=== PATIENT | female | born 1940 | race Caucasian/White ===

== ENCOUNTER 2017-09-06 19:01 | Inpatient (IN) | payer MEDICARE, OTHER ==
[2017-09-06 19:40] LABS: ABNORMAL IP MESSAGE 1; HEMATOCRIT 40.4 % (37.0-47.0); HEMOGLOBIN 13.3 g/dl (12.0-16.0); MEAN CORPUSCULAR HEMOGLOBIN 29.4 pg (29.0-33.0); MEAN CORPUSCULAR HGB CONC 32.9 g/dl (32.0-37.0); MEAN CORPUSCULAR VOLUME 89.4 fl (82.0-101.0); MEAN PLATELET VOLUME 10.1 fl (7.4-10.4); PLATELET COUNT 268 10^3/UL (140-415); RED BLOOD COUNT 4.52 10^6/ul (4.20-5.40); RED CELL DISTRIBUTION WIDTH 14.4 % (11.5-14.5)
[2017-09-06 19:40] LABS: WHITE BLOOD COUNT 4.2 10^3/ul (4.8-10.8)
[2017-09-06] MEDS: SODIUM CHLORIDE 0.9% 1L BAG IV* (19:59)
[2017-09-06 20:00] LABS: ANION GAP 16 (8-16)
[2017-09-06 20:01] LABS: ALANINE AMINOTRANSFERASE 58 IU/L (13-69); ALBUMIN 3.8 g/dl (3.3-4.9); ALBUMIN/GLOBULIN RATIO 1.02; ALKALINE PHOSPHATASE 173 IU/L (42-121); ASPARTATE AMINO TRANSFERASE 92 IU/L (15-46); BILIRUBIN,INDIRECT 0.4 mg/dl (0-1.1); BILIRUBIN,TOTAL 0.4 mg/dl (0.2-1.3); BLOOD UREA NITROGEN 12 mg/dl (7-20); CALCIUM 9.1 mg/dl (8.4-10.2); CARBON DIOXIDE 25 mmol/L (21-31); CHLORIDE 103 mmol/L (97-110); CREATININE 0.64 mg/dl (0.44-1.00); GLUCOSE 184 mg/dl (70-220); POTASSIUM 3.5 mmol/L (3.5-5.1); SODIUM 140 mmol/L (135-144); TOTAL PROTEIN 7.5 g/dl (6.1-8.1)
[2017-09-06 20:04] LABS: ADD MAN DIFF? YES; POSITIVE DIFF @See below; PROTIME 13.3 Sec (11.9-14.9)
[2017-09-06 20:05] LABS: PARTIAL THROMBOPLASTIN TIME 25.2 Sec (25.0-35.0)
[2017-09-06 20:05] LABS: LACTIC ACID 7.2 mmol/L (0.5-2.0)
[2017-09-06 20:17] LABS: TROPONIN-I < 0.010 ng/ml (0.000-0.120)
[2017-09-06 20:41] LABS: BAND NEUTROPHILS #M 1.7 10^3/ul (0.0-0.6); BAND NEUTROPHILS % (M) 41 % (0-4); EOSINOPHILS % (M) 2 % (0-7); ERYTHROBLAST% (NRBC) (M) 1 % (0-0); LYMPHOCYTES #M 0.3 10^3/ul (0.8-2.9); LYMPHOCYTES % (M) 8 % (15-51); PLATELET ESTIMATE NORMAL; POLYCHROMASIA 1+ (0-0); SEG NEUT #M 2.1 10^3/ul (1.6-7.5); SEGMENTED NEUTROPHILS (M) % 49 % (39-77); SMUDGE%M 4 % (0-0)
[2017-09-06] MEDS: CEFEPIME 1GM/50 ML (PMX) 50 ML IVPB (20:43)
[2017-09-06] MEDS: VANCOMYCIN 1 GM (PMX) 250 ML IVPB (21:14)
[2017-09-06] MEDS ORDERED: ONDANSETRON 4 MG INJ IV ×2 (21:30→23:30)
[2017-09-06] MEDS ORDERED: ACETAMINOPHEN 325 MG TAB PO ×2 (21:30→23:30)
[2017-09-06 22:12] LABS: LACTIC ACID 6.8 mmol/L (0.5-2.0)
[2017-09-06] MEDS ORDERED: DOCUSATE SODIUM 100 MG CAP PO (23:30)
[2017-09-06] MEDS ORDERED: NACL 0.9% 3 ML SYG IV (23:30)
[2017-09-06] MEDS ORDERED: MAGNESIUM HYDROXIDE 30ML CUP PO (23:30)
[2017-09-06] MEDS ORDERED: BISACODYL (EC) 5 MG TAB PO (23:30)
[2017-09-06 23:38] LABS: LACTIC ACID 5.8 mmol/L (0.5-2.0)
[2017-09-07] MEDS: SOD CHLORIDE 0.9% 1,000 ML IV ×4 (02:27→16:00)
[2017-09-07] MEDS: PIPER-TAZO 3.375 GM IV (PMX) 100 ML IVPB ×4 (02:27→18:41)
[2017-09-07] MEDS: ACCU-CHEK XX (02:46)
[2017-09-07] MEDS: PANTOPRAZOLE 40 MG INJ IV (05:56)
[2017-09-07] MEDS: DEXTROSE 5%-0.45% NACL 1,000 ML IV (05:56)
[2017-09-07 07:54] LABS: HEMOGLOBIN A1C 7.4 % (0-5.9)
[2017-09-07] MEDS: INSULIN ASPART [NOVOLOG] 3 ML PEN SC ×4 (08:08→20:28)
[2017-09-07] MEDS: ENOXAPARIN 40 MG/0.4 ML SYG SC (08:09)
[2017-09-07] MEDS: SERTRALINE 50 MG TAB PO (08:10)
[2017-09-07] MEDS: TOLTERODINE (SR) 4 MG CAP PO (09:00)
[2017-09-07] MEDS ORDERED: DEXTROSE 50% 50 ML SYRINGE IV ×2 (11:00)
[2017-09-07] MEDS ORDERED: GLUCAGON 1 MG INJ IM (11:00)
[2017-09-07] MEDS ORDERED: GLUCOSE GEL 15 GRAM TUBE BUCCAL (11:00)
[2017-09-07] MEDS ORDERED: GLUCOSE GEL 15 GRAM TUBE PO ×2 (11:00)
[2017-09-07] MEDS: OXYBUTYNIN TRANSDERM (11:52)
[2017-09-07] MEDS: ACETAMINOPHEN 650 MG SUPP PR (11:52)
[2017-09-07 14:32] LABS: WHITE BLOOD COUNT 15.3 10^3/ul (4.8-10.8)
[2017-09-07 14:32] LABS: ABNORMAL IP MESSAGE 1; HEMATOCRIT 34.5 % (37.0-47.0); MEAN CORPUSCULAR HEMOGLOBIN 29.2 pg (29.0-33.0); MEAN CORPUSCULAR HGB CONC 31.9 g/dl (32.0-37.0); MEAN CORPUSCULAR VOLUME 91.5 fl (82.0-101.0); MEAN PLATELET VOLUME 10.2 fl (7.4-10.4); PLATELET COUNT 181 10^3/UL (140-415); RED BLOOD COUNT 3.77 10^6/ul (4.20-5.40); RED CELL DISTRIBUTION WIDTH 15.2 % (11.5-14.5)
[2017-09-07 14:39] LABS: POSITIVE DIFF @See below
[2017-09-07 14:40] LABS: ADD MAN DIFF? YES
[2017-09-07 14:47] LABS: ADD UMIC YES; UR ASCORBIC ACID NEGATIVE (NEGATIVE); UR BACTERIA MODERATE /HPF (NONE SEEN); UR BILIRUBIN (Dip) NEGATIVE (NEGATIVE); UR BLOOD (Dip) 3+ mg/dL (NEGATIVE); UR CLARITY CLOUDY (CLEAR); UR COLOR RED (YELLOW); UR GLUCOSE (Dip) 1+ mg/dL (NEGATIVE); UR KETONES (Dip) TRACE mg/dL (NEGATIVE); UR LEUKOCYTE ESTERASE (Dip) 1+ Leu/ul (NEGATIVE); UR NITRITE (Dip) NEGATIVE (NEGATIVE); UR NONSQUAMOUS EPITHELIAL CELL 4 /HPF (NONE SEEN); UR RBC > 182 /HPF (0-5); UR SPECIFIC GRAVITY (Dip) 1.028 (1.003-1.030); UR TOTAL PROTEIN (Dip) 2+ mg/dl (NEGATIVE); UR UROBILINOGEN (Dip) NEGATIVE (NEGATIVE); UR WBC > 182 /HPF (0-5)
[2017-09-07 14:50] LABS: LACTIC ACID 3.7 mmol/L (0.5-2.0)
[2017-09-07 15:02] LABS: ALANINE AMINOTRANSFERASE 54 IU/L (13-69); ALBUMIN 2.6 g/dl (3.3-4.9); ALBUMIN/GLOBULIN RATIO 0.86; ALKALINE PHOSPHATASE 95 IU/L (42-121); ANION GAP 13 (8-16); ASPARTATE AMINO TRANSFERASE 65 IU/L (15-46); BILIRUBIN,INDIRECT 0.4 mg/dl (0-1.1); BILIRUBIN,TOTAL 0.4 mg/dl (0.2-1.3); BLOOD UREA NITROGEN 18 mg/dl (7-20); CALCIUM 7.6 mg/dl (8.4-10.2); CARBON DIOXIDE 23 mmol/L (21-31); CHLORIDE 111 mmol/L (97-110); CREATININE 1.15 mg/dl (0.44-1.00); GLUCOSE 164 mg/dl (70-220); POTASSIUM 3.7 mmol/L (3.5-5.1); SODIUM 143 mmol/L (135-144); TOTAL PROTEIN 5.6 g/dl (6.1-8.1)
[2017-09-07 15:17] LABS: ANISOCYTOSIS 1+ (0-0); BAND NEUTROPHILS #M 3.5 10^3/ul (0.0-0.6); BAND NEUTROPHILS % (M) 23 % (0-4); ERYTHROBLAST% (NRBC) (M) 1 % (0-0); LYMPHOCYTES #M 0.9 10^3/ul (0.8-2.9); LYMPHOCYTES % (M) 6 % (15-51); METAMYELOCYTES #M 0.1 10^3/ul (0.0-0.0); METAMYELOCYTES %M 1 % (0-0); MICROCYTOSIS 1+ (0-0); MONOCYTES % (M) 7 % (0-11); PLATELET ESTIMATE NORMAL; POLYCHROMASIA 1+ (0-0); SEG NEUT #M 10.2 10^3/ul (1.6-7.5); SEGMENTED NEUTROPHILS (M) % 63 % (39-77)
[2017-09-07] MEDS ORDERED: VANCOMYCIN IV PER PHARMACY XX (15:30)
[2017-09-07] MEDS ORDERED: NORepinephrine 8MG/250 ML (PMX 250 ML IV (15:30)
[2017-09-07] MEDS ORDERED: CEFTRIAXONE 1 GM/50 ML (PMX) 50 ML IVPB (16:30)
[2017-09-07] MEDS: NORepinephrine 8MG/250 ML (PMX 250 ML IV (16:42)
[2017-09-07] MEDS: VANCOMYCIN 1 GM 250 ML IVPB (16:47)
[2017-09-07] MEDS ORDERED: PENDING SANTYL ORDER FOR WOUND CARE XX (18:00)
[2017-09-07] MEDS: INSULIN GLARGINE [LANtus] 3 ML PEN SC (20:28)
[2017-09-08] MEDS: PIPER-TAZO 3.375 GM IV (PMX) 100 ML IVPB ×3 (01:13→11:24)
[2017-09-08] MEDS: SOD CHLORIDE 0.9% 1,000 ML IV (01:13)
[2017-09-08 05:20] LABS: WHITE BLOOD COUNT 23.8 10^3/ul (4.8-10.8)
[2017-09-08 05:20] LABS: MEAN CORPUSCULAR HEMOGLOBIN 28.8 pg (29.0-33.0); MEAN CORPUSCULAR HGB CONC 31.6 g/dl (32.0-37.0); MEAN CORPUSCULAR VOLUME 91.1 fl (82.0-101.0); MEAN PLATELET VOLUME 10.5 fl (7.4-10.4); PLATELET COUNT 229 10^3/UL (140-415); RED BLOOD COUNT 4.17 10^6/ul (4.20-5.40); RED CELL DISTRIBUTION WIDTH 15.5 % (11.5-14.5)
[2017-09-08 05:23] LABS: POSITIVE DIFF @See below
[2017-09-08 05:24] LABS: ADD MAN DIFF? YES
[2017-09-08 05:41] LABS: LACTIC ACID 1.8 mmol/L (0.5-2.0)
[2017-09-08 05:49] LABS: ANION GAP 13 (8-16); BLOOD UREA NITROGEN 22 mg/dl (7-20); CALCIUM 7.6 mg/dl (8.4-10.2); CARBON DIOXIDE 24 mmol/L (21-31); CHLORIDE 113 mmol/L (97-110); CREATININE 1.05 mg/dl (0.44-1.00); GLUCOSE 158 mg/dl (70-220); POTASSIUM 4.2 mmol/L (3.5-5.1); SODIUM 146 mmol/L (135-144)
[2017-09-08] MEDS: PANTOPRAZOLE 40 MG INJ IV (06:08)
[2017-09-08] MEDS: INSULIN ASPART [NOVOLOG] 3 ML PEN SC ×4 (07:35→21:00)
[2017-09-08] MEDS: SERTRALINE 50 MG TAB PO (08:04)
[2017-09-08] MEDS: ENOXAPARIN 40 MG/0.4 ML SYG SC (08:04)
[2017-09-08 08:14] LABS: BAND NEUTROPHILS #M 6.6 10^3/ul (0.0-0.6); BAND NEUTROPHILS % (M) 28 % (0-4); LYMPHOCYTES #M 4.5 10^3/ul (0.8-2.9); LYMPHOCYTES % (M) 19 % (15-51); MONOCYTE #M 0.7 10^3/ul (0.3-0.9); MONOCYTES % (M) 3 % (0-11); PLATELET ESTIMATE NORMAL; SEG NEUT #M 13.5 10^3/ul (1.6-7.5); SEGMENTED NEUTROPHILS (M) % 50 % (39-77); SMUDGE%M 8 % (0-0)
[2017-09-08 08:45] LABS: AADO2 Arterial 32.1 mmHg (7.0-24.0); Allen Test ACCEPTAB; Arterial Base Excess -3.8 mmol/L (-3.0-3); Arterial Blood Gas Oxygen Sat 93.9 mmHG (95.0-100.0); Arterial COHb 0.5 % (0.0-3.0); Arterial Fraction of Oxyhgb 93.4 % (93.0-99.0); Arterial HCO3 21.5 mmol/L (22.0-26.0); Arterial MetHb 0 % (0.0-1.5); Arterial Total Hemglobin 12.2 g/dl (12.0-18.0); Arterial pCO2 40.2 mmhg (35-45); MODE ROOM AIR; Site Right Radial
[2017-09-08] MEDS: DEXTROSE 5% 1,000 ML IV (11:24)
[2017-09-08] MEDS: MEROPENEM 500MG/50 ML (PMX) 50 ML IVPB (21:45)
[2017-09-08] MEDS: INSULIN GLARGINE [LANtus] 3 ML PEN SC (21:57)
[2017-09-09 05:33] LABS: ADD MAN DIFF? NO
[2017-09-09] MEDS: PANTOPRAZOLE 40 MG INJ IV (05:47)
[2017-09-09 05:53] LABS: WHITE BLOOD COUNT 14.6 10^3/ul (4.8-10.8)
[2017-09-09 05:53] LABS: BASOPHIL # 0.1 10^3/ul (0.0-0.1); BASOPHILS % 0.4 % (0.0-2.0); EOSINOPHILS # 0.3 10^3/ul (0.0-0.5); EOSINOPHILS % 1.8 % (0.0-7.0); HEMATOCRIT 33.7 % (37.0-47.0); HEMOGLOBIN 10.8 g/dl (12.0-16.0); LYMPHOCYTES # 2.4 10^3/ul (0.8-2.9); LYMPHOCYTES % 16.5 % (15.0-51.0); MEAN CORPUSCULAR HEMOGLOBIN 28.8 pg (29.0-33.0); MEAN CORPUSCULAR VOLUME 89.9 fl (82.0-101.0); MEAN PLATELET VOLUME 10.7 fl (7.4-10.4); MONOCYTE # 0.7 10^3/ul (0.3-0.9); MONOCYTES % 4.8 % (0.0-11.0); NEUTROPHILS % 75.3 % (39.0-77.0); PLATELET COUNT 204 10^3/UL (140-415); RED BLOOD COUNT 3.75 10^6/ul (4.20-5.40); RED CELL DISTRIBUTION WIDTH 15.3 % (11.5-14.5)
[2017-09-09 05:59] LABS: ANION GAP 6 (8-16); BLOOD UREA NITROGEN 18 mg/dl (7-20); CARBON DIOXIDE 27 mmol/L (21-31); CHLORIDE 111 mmol/L (97-110); CREATININE 0.94 mg/dl (0.44-1.00); GLUCOSE 117 mg/dl (70-220); POTASSIUM 3.4 mmol/L (3.5-5.1); SODIUM 141 mmol/L (135-144)
[2017-09-09] MEDS: INSULIN ASPART [NOVOLOG] 3 ML PEN SC ×4 (07:35→21:00)
[2017-09-09] MEDS: ENOXAPARIN 40 MG/0.4 ML SYG SC (08:04)
[2017-09-09] MEDS: SERTRALINE 50 MG TAB PO (08:05)
[2017-09-09] MEDS: MEROPENEM 500MG/50 ML (PMX) 50 ML IVPB ×2 (08:05→21:25)
[2017-09-09] MEDS: DEXTROSE 5% 1,000 ML IV (12:12)
[2017-09-09] MEDS: POTASSIUM CHLORIDE 50 ML IVPB ×2 (16:57→21:25)
[2017-09-09] MEDS ORDERED: hydrALAzine 20 MG INJ IV (17:30)
[2017-09-09] MEDS: FLUCONAZOLE 100 MG TAB PO (18:20)
[2017-09-09] MEDS: INSULIN GLARGINE [LANtus] 3 ML PEN SC (21:27)
[2017-09-10] MEDS: DEXTROSE 5% 1,000 ML IV (02:43)
[2017-09-10] MEDS: PANTOPRAZOLE 40 MG INJ IV (06:16)
[2017-09-10 07:27] LABS: ADD MAN DIFF? NO
[2017-09-10 07:32] LABS: WHITE BLOOD COUNT 9.5 10^3/ul (4.8-10.8)
[2017-09-10 07:32] LABS: BASOPHIL # 0.1 10^3/ul (0.0-0.1); BASOPHILS % 0.5 % (0.0-2.0); EOSINOPHILS # 0.2 10^3/ul (0.0-0.5); EOSINOPHILS % 1.8 % (0.0-7.0); HEMOGLOBIN 10.8 g/dl (12.0-16.0); LYMPHOCYTES # 2.1 10^3/ul (0.8-2.9); LYMPHOCYTES % 22.2 % (15.0-51.0); MEAN CORPUSCULAR HEMOGLOBIN 28.3 pg (29.0-33.0); MEAN CORPUSCULAR HGB CONC 31.8 g/dl (32.0-37.0); MEAN CORPUSCULAR VOLUME 89.2 fl (82.0-101.0); MEAN PLATELET VOLUME 10.3 fl (7.4-10.4); MONOCYTE # 0.5 10^3/ul (0.3-0.9); MONOCYTES % 5.3 % (0.0-11.0); NEUTROPHIL # 6.6 10^3/ul (1.6-7.5); NEUTROPHILS % 69.5 % (39.0-77.0); PLATELET COUNT 217 10^3/UL (140-415); RED BLOOD COUNT 3.81 10^6/ul (4.20-5.40); RED CELL DISTRIBUTION WIDTH 14.8 % (11.5-14.5)
[2017-09-10] MEDS: INSULIN ASPART [NOVOLOG] 3 ML PEN SC ×4 (08:00→21:00)
[2017-09-10 08:02] LABS: ALANINE AMINOTRANSFERASE 47 IU/L (13-69); ALBUMIN 2.9 g/dl (3.3-4.9); ALBUMIN/GLOBULIN RATIO 0.87; ALKALINE PHOSPHATASE 95 IU/L (42-121); ANION GAP 7 (8-16); ASPARTATE AMINO TRANSFERASE 34 IU/L (15-46); BILIRUBIN,INDIRECT 0.3 mg/dl (0-1.1); BILIRUBIN,TOTAL 0.3 mg/dl (0.2-1.3); BLOOD UREA NITROGEN 16 mg/dl (7-20); CALCIUM 8.4 mg/dl (8.4-10.2); CARBON DIOXIDE 30 mmol/L (21-31); CHLORIDE 109 mmol/L (97-110); CREATININE 0.75 mg/dl (0.44-1.00); GLUCOSE 137 mg/dl (70-220); POTASSIUM 3.8 mmol/L (3.5-5.1); SODIUM 142 mmol/L (135-144); TOTAL PROTEIN 6.2 g/dl (6.1-8.1)
[2017-09-10] MEDS: MEROPENEM 500MG/50 ML (PMX) 50 ML IVPB ×2 (09:57→21:21)
[2017-09-10] MEDS: ENOXAPARIN 40 MG/0.4 ML SYG SC (10:02)
[2017-09-10] MEDS: FLUCONAZOLE 100 MG TAB PO (12:00)
[2017-09-10] MEDS: SERTRALINE 50 MG TAB PO (12:00)
[2017-09-10] MEDS: OXYBUTYNIN TRANSDERM (13:35)
[2017-09-10] MEDS: ALBUTEROL/IPRATROPIUM (NEB) 3 ML AMP HHN ×2 (18:59→21:18)
[2017-09-10] MEDS: INSULIN GLARGINE [LANtus] 3 ML PEN SC (22:49)
[2017-09-11] MEDS: ALBUTEROL/IPRATROPIUM (NEB) 3 ML AMP HHN ×4 (01:30→13:13)
[2017-09-11] MEDS: PANTOPRAZOLE 40 MG INJ IV (06:13)
[2017-09-11 06:45] LABS: ADD MAN DIFF? NO
[2017-09-11 06:53] LABS: WHITE BLOOD COUNT 8.4 10^3/ul (4.8-10.8)
[2017-09-11 06:53] LABS: BASOPHIL # 0.1 10^3/ul (0.0-0.1); BASOPHILS % 0.6 % (0.0-2.0); EOSINOPHILS # 0.2 10^3/ul (0.0-0.5); HEMATOCRIT 33.2 % (37.0-47.0); HEMOGLOBIN 10.6 g/dl (12.0-16.0); LYMPHOCYTES # 2.5 10^3/ul (0.8-2.9); LYMPHOCYTES % 29.5 % (15.0-51.0); MEAN CORPUSCULAR HEMOGLOBIN 28.5 pg (29.0-33.0); MEAN CORPUSCULAR HGB CONC 31.9 g/dl (32.0-37.0); MEAN CORPUSCULAR VOLUME 89.2 fl (82.0-101.0); MEAN PLATELET VOLUME 10.3 fl (7.4-10.4); MONOCYTE # 0.7 10^3/ul (0.3-0.9); MONOCYTES % 7.8 % (0.0-11.0); NEUTROPHIL # 4.9 10^3/ul (1.6-7.5); NEUTROPHILS % 58.9 % (39.0-77.0); PLATELET COUNT 211 10^3/UL (140-415); RED BLOOD COUNT 3.72 10^6/ul (4.20-5.40); RED CELL DISTRIBUTION WIDTH 14.7 % (11.5-14.5)
[2017-09-11 07:09] LABS: ANION GAP 7 (8-16); BLOOD UREA NITROGEN 16 mg/dl (7-20); CALCIUM 8.7 mg/dl (8.4-10.2); CARBON DIOXIDE 33 mmol/L (21-31); CHLORIDE 106 mmol/L (97-110); CREATININE 0.85 mg/dl (0.44-1.00); GLUCOSE 131 mg/dl (70-220); POTASSIUM 3.7 mmol/L (3.5-5.1); SODIUM 142 mmol/L (135-144)
[2017-09-11 07:10] LABS: PHOSPHORUS 3.1 mg/dl (2.5-4.9)
[2017-09-11] MEDS: INSULIN ASPART [NOVOLOG] 3 ML PEN SC ×4 (08:00→21:43)
[2017-09-11] MEDS: FLUCONAZOLE 100 MG TAB PO (08:24)
[2017-09-11] MEDS: SERTRALINE 50 MG TAB PO (08:24)
[2017-09-11] MEDS: MEROPENEM 500MG/50 ML (PMX) 50 ML IVPB (08:25)
[2017-09-11] MEDS: ENOXAPARIN 40 MG/0.4 ML SYG SC (08:26)
[2017-09-11] MEDS: hydrALAzine 20 MG INJ IV ×2 (08:37→15:49)
[2017-09-11] MEDS: CEFTRIAXONE 1 GM/50 ML (PMX) 50 ML IVPB (15:50)
[2017-09-11] MEDS ORDERED: LEVALBUTEROL (NEB) 1.25 MG/0.5 ML AMP HHN (16:30)
[2017-09-11] MEDS: INSULIN GLARGINE [LANtus] 3 ML PEN SC (21:43)
[2017-09-12] MEDS: PANTOPRAZOLE 40 MG INJ IV (06:26)
[2017-09-12] MEDS: INSULIN ASPART [NOVOLOG] 3 ML PEN SC ×4 (08:00→21:44)
[2017-09-12] MEDS: SERTRALINE 50 MG TAB PO (08:08)
[2017-09-12] MEDS: FLUCONAZOLE 100 MG TAB PO (08:08)
[2017-09-12] MEDS: ENOXAPARIN 40 MG/0.4 ML SYG SC (08:09)
[2017-09-12 09:29] LABS: ADD MAN DIFF? NO
[2017-09-12 09:35] LABS: WHITE BLOOD COUNT 9.4 10^3/ul (4.8-10.8)
[2017-09-12 09:35] LABS: BASOPHILS % 0.4 % (0.0-2.0); EOSINOPHILS # 0.3 10^3/ul (0.0-0.5); EOSINOPHILS % 2.9 % (0.0-7.0); HEMATOCRIT 33.4 % (37.0-47.0); HEMOGLOBIN 10.5 g/dl (12.0-16.0); LYMPHOCYTES # 2.4 10^3/ul (0.8-2.9); LYMPHOCYTES % 25.4 % (15.0-51.0); MEAN CORPUSCULAR HEMOGLOBIN 28.2 pg (29.0-33.0); MEAN CORPUSCULAR HGB CONC 31.4 g/dl (32.0-37.0); MEAN CORPUSCULAR VOLUME 89.5 fl (82.0-101.0); MEAN PLATELET VOLUME 10.4 fl (7.4-10.4); MONOCYTE # 0.8 10^3/ul (0.3-0.9); NEUTROPHIL # 5.7 10^3/ul (1.6-7.5); NEUTROPHILS % 60.6 % (39.0-77.0); NUCLEATED RED BLOOD CELLS% 0.2 /100WBC (0.0-0.0); PLATELET COUNT 249 10^3/UL (140-415); RED BLOOD COUNT 3.73 10^6/ul (4.20-5.40); RED CELL DISTRIBUTION WIDTH 14.8 % (11.5-14.5)
[2017-09-12 10:03] LABS: ANION GAP 8 (8-16); BLOOD UREA NITROGEN 14 mg/dl (7-20); CALCIUM 8.7 mg/dl (8.4-10.2); CARBON DIOXIDE 35 mmol/L (21-31); CHLORIDE 104 mmol/L (97-110); CREATININE 0.68 mg/dl (0.44-1.00); GLUCOSE 129 mg/dl (70-220); POTASSIUM 3.6 mmol/L (3.5-5.1); SODIUM 143 mmol/L (135-144)
[2017-09-12 10:09] LABS: PHOSPHORUS 3.4 mg/dl (2.5-4.9)
[2017-09-12 10:09] LABS: MAGNESIUM 1.8 mg/dl (1.7-2.5)
[2017-09-12] MEDS: hydrALAzine 20 MG INJ IV (12:15)
[2017-09-12] MEDS: CEFTRIAXONE 1 GM/50 ML (PMX) 50 ML IVPB (15:25)
[2017-09-12] MEDS: INSULIN GLARGINE [LANtus] 3 ML PEN SC (21:42)
[2017-09-13] MEDS: PANTOPRAZOLE 40 MG INJ IV (05:37)
[2017-09-13] MEDS: FUROSEMIDE 20 MG INJ IV ×2 (05:42→17:01)
[2017-09-13] MEDS: INSULIN ASPART [NOVOLOG] 3 ML PEN SC ×4 (08:00→20:16)
[2017-09-13] MEDS: SERTRALINE 50 MG TAB PO (08:27)
[2017-09-13] MEDS: FLUCONAZOLE 100 MG TAB PO (08:27)
[2017-09-13] MEDS: ENOXAPARIN 40 MG/0.4 ML SYG SC (08:32)
[2017-09-13] MEDS: OXYBUTYNIN TRANSDERM (13:11)
[2017-09-13 16:13] LABS: AADO2 Arterial 37.7 mmHg (7.0-24.0); Allen Test ACCEPTAB; Arterial Base Excess 13.9 mmol/L (-3.0-3); Arterial Blood Gas Oxygen Sat 83.4 mmHG (95.0-100.0); Arterial COHb 0.4 % (0.0-3.0); Arterial HCO3 39.8 mmol/L (22.0-26.0); Arterial MetHb 0.1 % (0.0-1.5); Arterial Total Hemglobin 11.8 g/dl (12.0-18.0); Arterial pCO2 56.5 mmhg (35-45); MODE ROOM AIR; Site Right Radial
[2017-09-13] MEDS: CEFTRIAXONE 1 GM/50 ML (PMX) 50 ML IVPB (16:59)
[2017-09-13] MEDS ORDERED: METOPROLOL 5 MG INJ IV (18:00)
[2017-09-13] MEDS: DIGOXIN 500 MCG INJ IV (18:39)
[2017-09-13 19:18] LABS: TROPONIN-I < 0.012 ng/ml (0.000-0.120)
[2017-09-13] MEDS: INSULIN GLARGINE [LANtus] 3 ML PEN SC (20:25)
[2017-09-14 02:10] LABS: TROPONIN-I < 0.012 ng/ml (0.000-0.120)
[2017-09-14] MEDS: FUROSEMIDE 20 MG INJ IV ×2 (06:20→17:09)
[2017-09-14] MEDS: PANTOPRAZOLE 40 MG INJ IV (06:20)
[2017-09-14 08:00] LABS: CHOLESTEROL 174 mg/dl (100-200)
[2017-09-14 08:00] LABS: CHOL/HDL RATIO 5.4 RATIO; HDL CHOLESTEROL 32 mg/dl (33-92); LDL CHOLESTEROL,CALCULATED 104 mg/dl; TRIGLYCERIDES 191 mg/dl (0-149)
[2017-09-14] MEDS: INSULIN ASPART [NOVOLOG] 3 ML PEN SC ×4 (08:00→20:34)
[2017-09-14 08:03] LABS: TROPONIN-I < 0.012 ng/ml (0.000-0.120)
[2017-09-14] MEDS: SERTRALINE 50 MG TAB PO (08:59)
[2017-09-14] MEDS: FLUCONAZOLE 100 MG TAB PO (08:59)
[2017-09-14] MEDS: ENOXAPARIN 40 MG/0.4 ML SYG SC (09:01)
[2017-09-14] MEDS: THYROID 30 MG TAB PO (12:03)
[2017-09-14] MEDS: OXYBUTYNIN (XL) 5 MG TAB PO (13:58)
[2017-09-14] MEDS: CEFTRIAXONE 1 GM/50 ML (PMX) 50 ML IVPB (15:12)
[2017-09-14] MEDS: hydrALAzine 20 MG INJ IV (15:37)
[2017-09-14] MEDS: LEVOFLOXACIN 500 MG TAB PO (16:24)
[2017-09-14] MEDS: ATORVASTATIN 10 MG TAB PO (20:17)
[2017-09-14] MEDS: INSULIN GLARGINE [LANtus] 3 ML PEN SC (20:34)
[2017-09-15 06:10] LABS: ADD MAN DIFF? NO
[2017-09-15] MEDS: FUROSEMIDE 20 MG INJ IV (06:18)
[2017-09-15] MEDS: PANTOPRAZOLE (EC) 40 MG TAB PO (06:18)
[2017-09-15 06:26] LABS: BASOPHIL # 0.1 10^3/ul (0.0-0.1); BASOPHILS % 0.6 % (0.0-2.0); EOSINOPHILS # 0.3 10^3/ul (0.0-0.5); EOSINOPHILS % 3.1 % (0.0-7.0); HEMOGLOBIN 11.1 g/dl (12.0-16.0); LYMPHOCYTES # 2.6 10^3/ul (0.8-2.9); LYMPHOCYTES % 31.9 % (15.0-51.0); MEAN CORPUSCULAR HEMOGLOBIN 28.2 pg (29.0-33.0); MEAN CORPUSCULAR HGB CONC 31.7 g/dl (32.0-37.0); MEAN CORPUSCULAR VOLUME 88.8 fl (82.0-101.0); MEAN PLATELET VOLUME 9.8 fl (7.4-10.4); MONOCYTE # 0.6 10^3/ul (0.3-0.9); MONOCYTES % 7.3 % (0.0-11.0); NEUTROPHIL # 4.7 10^3/ul (1.6-7.5); NEUTROPHILS % 56.4 % (39.0-77.0); PLATELET COUNT 303 10^3/UL (140-415); RED BLOOD COUNT 3.94 10^6/ul (4.20-5.40); RED CELL DISTRIBUTION WIDTH 14.5 % (11.5-14.5)
[2017-09-15 06:26] LABS: WHITE BLOOD COUNT 8.3 10^3/ul (4.8-10.8)
[2017-09-15 06:55] LABS: BLOOD UREA NITROGEN 13 mg/dl (7-20); CALCIUM 8.3 mg/dl (8.4-10.2); CHLORIDE 91 mmol/L (97-110); CREATININE 0.64 mg/dl (0.44-1.00); GLUCOSE 107 mg/dl (70-220); POTASSIUM 3.1 mmol/L (3.5-5.1); SODIUM 141 mmol/L (135-144)
[2017-09-15 07:45] LABS: ANION GAP 8 (8-16); CARBON DIOXIDE 45 mmol/L (21-31)
[2017-09-15] MEDS: INSULIN ASPART [NOVOLOG] 3 ML PEN SC ×4 (08:00→21:07)
[2017-09-15] MEDS: THYROID 30 MG TAB PO (09:03)
[2017-09-15] MEDS: OXYBUTYNIN (XL) 5 MG TAB PO (09:03)
[2017-09-15] MEDS: FLUCONAZOLE 100 MG TAB PO (09:03)
[2017-09-15] MEDS: BENAZEPRIL 10 MG TAB PO (09:03)
[2017-09-15] MEDS: LEVOFLOXACIN 500 MG TAB PO (09:03)
[2017-09-15] MEDS: ENOXAPARIN 40 MG/0.4 ML SYG SC (09:10)
[2017-09-15] MEDS: SERTRALINE 50 MG TAB PO (10:32)
[2017-09-15] MEDS: POTASSIUM CHLORIDE (SR) 20 MEQ TAB PO (11:11)
[2017-09-15 11:28] LABS: AADO2 Arterial 47.9 mmHg (7.0-24.0); Arterial Base Excess 21.4 mmol/L (-3.0-3); Arterial Blood Gas Oxygen Sat 94.9 mmHG (95.0-100.0); Arterial COHb 0.6 % (0.0-3.0); Arterial Fraction of Oxyhgb 94.2 % (93.0-99.0); Arterial HCO3 47.9 mmol/L (22.0-26.0); Arterial MetHb 0.1 % (0.0-1.5); Arterial Total Hemglobin 12.6 g/dl (12.0-18.0); Arterial pCO2 60.8 mmhg (35-45); MODE NASAL CANNULA; Site LB
[2017-09-15] MEDS: ACETAZOLAMIDE 250 MG TAB PO ×2 (15:03→21:04)
[2017-09-15] MEDS: ATORVASTATIN 10 MG TAB PO (21:04)
[2017-09-15] MEDS: INSULIN GLARGINE [LANtus] 3 ML PEN SC (21:06)
[2017-09-16] MEDS: LEVOFLOXACIN 500 MG TAB PO (05:29)
[2017-09-16] MEDS: PANTOPRAZOLE (EC) 40 MG TAB PO (05:29)
[2017-09-16 07:37] LABS: ADD MAN DIFF? NO
[2017-09-16 07:41] LABS: WHITE BLOOD COUNT 9.7 10^3/ul (4.8-10.8)
[2017-09-16 07:41] LABS: BASOPHIL # 0.1 10^3/ul (0.0-0.1); BASOPHILS % 0.5 % (0.0-2.0); EOSINOPHILS # 0.2 10^3/ul (0.0-0.5); EOSINOPHILS % 2.4 % (0.0-7.0); HEMATOCRIT 35.3 % (37.0-47.0); HEMOGLOBIN 11.2 g/dl (12.0-16.0); LYMPHOCYTES # 2.9 10^3/ul (0.8-2.9); LYMPHOCYTES % 30.2 % (15.0-51.0); MEAN CORPUSCULAR HEMOGLOBIN 28.1 pg (29.0-33.0); MEAN CORPUSCULAR HGB CONC 31.7 g/dl (32.0-37.0); MEAN CORPUSCULAR VOLUME 88.7 fl (82.0-101.0); MEAN PLATELET VOLUME 10.3 fl (7.4-10.4); MONOCYTE # 0.7 10^3/ul (0.3-0.9); MONOCYTES % 6.8 % (0.0-11.0); NEUTROPHIL # 5.8 10^3/ul (1.6-7.5); NEUTROPHILS % 59.6 % (39.0-77.0); PLATELET COUNT 326 10^3/UL (140-415); RED BLOOD COUNT 3.98 10^6/ul (4.20-5.40); RED CELL DISTRIBUTION WIDTH 14.8 % (11.5-14.5)
[2017-09-16] MEDS: INSULIN ASPART [NOVOLOG] 3 ML PEN SC ×4 (08:00→20:17)
[2017-09-16 08:02] LABS: ANION GAP 9 (8-16); BLOOD UREA NITROGEN 14 mg/dl (7-20); CALCIUM 8.6 mg/dl (8.4-10.2); CARBON DIOXIDE 40 mmol/L (21-31); CHLORIDE 95 mmol/L (97-110); CREATININE 0.82 mg/dl (0.44-1.00); GLUCOSE 105 mg/dl (70-220); POTASSIUM 3.2 mmol/L (3.5-5.1); SODIUM 141 mmol/L (135-144)
[2017-09-16] MEDS: BENAZEPRIL 10 MG TAB PO (08:22)
[2017-09-16] MEDS: SERTRALINE 50 MG TAB PO (08:22)
[2017-09-16] MEDS: THYROID 30 MG TAB PO (08:23)
[2017-09-16] MEDS: ACETAZOLAMIDE 250 MG TAB PO (08:23)
[2017-09-16] MEDS: FLUCONAZOLE 100 MG TAB PO (08:23)
[2017-09-16] MEDS: OXYBUTYNIN (XL) 5 MG TAB PO (08:24)
[2017-09-16] MEDS: ENOXAPARIN 40 MG/0.4 ML SYG SC (08:27)
[2017-09-16] MEDS: POTASSIUM CHLORIDE 20 MEQ POWDER FOR ORAL SOLN PO (10:56)
[2017-09-16] MEDS: ATORVASTATIN 10 MG TAB PO (20:13)
[2017-09-16] MEDS: INSULIN GLARGINE [LANtus] 3 ML PEN SC (20:16)
[2017-09-17] MEDS: LEVOFLOXACIN 500 MG TAB PO (06:23)
[2017-09-17] MEDS: PANTOPRAZOLE (EC) 40 MG TAB PO (06:23)
[2017-09-17] MEDS: INSULIN ASPART [NOVOLOG] 3 ML PEN SC ×4 (08:00→20:20)
[2017-09-17] MEDS: THYROID 30 MG TAB PO (10:04)
[2017-09-17] MEDS: FLUCONAZOLE 100 MG TAB PO (10:04)
[2017-09-17] MEDS: OXYBUTYNIN (XL) 5 MG TAB PO (10:04)
[2017-09-17] MEDS: SERTRALINE 50 MG TAB PO (10:05)
[2017-09-17] MEDS: BENAZEPRIL 10 MG TAB PO (10:06)
[2017-09-17] MEDS: ENOXAPARIN 40 MG/0.4 ML SYG SC (10:31)
[2017-09-17 11:52] LABS: ANION GAP 13 (8-16); BLOOD UREA NITROGEN 17 mg/dl (7-20); CALCIUM 8.7 mg/dl (8.4-10.2); CARBON DIOXIDE 35 mmol/L (21-31); CHLORIDE 96 mmol/L (97-110); CREATININE 0.83 mg/dl (0.44-1.00); GLUCOSE 167 mg/dl (70-220); POTASSIUM 3.7 mmol/L (3.5-5.1); SODIUM 140 mmol/L (135-144)
[2017-09-17] MEDS: ATORVASTATIN 10 MG TAB PO (20:14)
[2017-09-17] MEDS: INSULIN GLARGINE [LANtus] 3 ML PEN SC (20:21)
[2017-09-18] MEDS: LEVOFLOXACIN 500 MG TAB PO (06:05)
[2017-09-18] MEDS: PANTOPRAZOLE (EC) 40 MG TAB PO (06:05)
[2017-09-18] MEDS: INSULIN ASPART [NOVOLOG] 3 ML PEN SC ×4 (08:00→21:31)
[2017-09-18] MEDS: FLUCONAZOLE 100 MG TAB PO (08:13)
[2017-09-18] MEDS: THYROID 30 MG TAB PO (08:13)
[2017-09-18] MEDS: SERTRALINE 50 MG TAB PO (08:14)
[2017-09-18] MEDS: BENAZEPRIL 10 MG TAB PO (08:14)
[2017-09-18] MEDS: OXYBUTYNIN (XL) 5 MG TAB PO (08:14)
[2017-09-18] MEDS: ENOXAPARIN 40 MG/0.4 ML SYG SC (08:15)
[2017-09-18] MEDS: ATORVASTATIN 10 MG TAB PO (21:21)
[2017-09-18] MEDS: INSULIN GLARGINE [LANtus] 3 ML PEN SC (21:32)
[2017-09-19] MEDS: PANTOPRAZOLE (EC) 40 MG TAB PO (06:05)
[2017-09-19] MEDS: LEVOFLOXACIN 500 MG TAB PO (06:05)
[2017-09-19] MEDS: INSULIN ASPART [NOVOLOG] 3 ML PEN SC ×3 (08:00→17:15)
[2017-09-19] MEDS: ENOXAPARIN 40 MG/0.4 ML SYG SC (08:26)
[2017-09-19] MEDS: BENAZEPRIL 10 MG TAB PO (08:29)
[2017-09-19] MEDS: FLUCONAZOLE 100 MG TAB PO (08:29)
[2017-09-19] MEDS: SERTRALINE 50 MG TAB PO (08:29)
[2017-09-19] MEDS: OXYBUTYNIN (XL) 5 MG TAB PO (08:29)
[2017-09-19] MEDS: THYROID 30 MG TAB PO (08:29)
[2017-09-19 09:20] LABS: ADD MAN DIFF? NO
[2017-09-19 09:31] LABS: WHITE BLOOD COUNT 9.6 10^3/ul (4.8-10.8)
[2017-09-19 09:31] LABS: BASOPHIL # 0.1 10^3/ul (0.0-0.1); BASOPHILS % 0.6 % (0.0-2.0); EOSINOPHILS # 0.2 10^3/ul (0.0-0.5); EOSINOPHILS % 1.8 % (0.0-7.0); HEMATOCRIT 34.2 % (37.0-47.0); HEMOGLOBIN 10.9 g/dl (12.0-16.0); LYMPHOCYTES # 2.6 10^3/ul (0.8-2.9); LYMPHOCYTES % 27.4 % (15.0-51.0); MEAN CORPUSCULAR HEMOGLOBIN 28.4 pg (29.0-33.0); MEAN CORPUSCULAR HGB CONC 31.9 g/dl (32.0-37.0); MEAN CORPUSCULAR VOLUME 89.1 fl (82.0-101.0); MEAN PLATELET VOLUME 10.6 fl (7.4-10.4); MONOCYTE # 0.8 10^3/ul (0.3-0.9); MONOCYTES % 8.1 % (0.0-11.0); NEUTROPHIL # 5.9 10^3/ul (1.6-7.5); NEUTROPHILS % 61.8 % (39.0-77.0); PLATELET COUNT 347 10^3/UL (140-415); RED BLOOD COUNT 3.84 10^6/ul (4.20-5.40); RED CELL DISTRIBUTION WIDTH 15.1 % (11.5-14.5)
[2017-09-19 09:50] LABS: ANION GAP 13 (8-16); BLOOD UREA NITROGEN 15 mg/dl (7-20); CALCIUM 8.8 mg/dl (8.4-10.2); CARBON DIOXIDE 35 mmol/L (21-31); CHLORIDE 98 mmol/L (97-110); CREATININE 0.65 mg/dl (0.44-1.00); GLUCOSE 117 mg/dl (70-220); POTASSIUM 4.3 mmol/L (3.5-5.1); SODIUM 142 mmol/L (135-144)
== END 2017-09-19 18:55 | disposition home health service (06) | DRG 871 ==
LOC: MS4 09-10 01:49 → E/R 19:01 → ICU 09-07 15:19 → MS4 21:19
DX: A41.51 Sepsis due to Escherichia coli [E. coli] (principal); G93.40 Encephalopathy, unspecified; R65.21 Severe sepsis with septic shock; N39.0 Urinary tract infection, site not specified; B96.20 Unspecified Escherichia coli [E. coli] as the cause of diseases classified elsewhere; D70.9 Neutropenia, unspecified; R13.10 Dysphagia, unspecified; I11.0 Hypertensive heart disease with heart failure; I50.9 Heart failure, unspecified; E66.01 Morbid (severe) obesity due to excess calories; R31.9 Hematuria, unspecified; E11.9 Type 2 diabetes mellitus without complications; F03.90 Unspecified dementia, unspecified severity, without behavioral disturbance, psychotic disturbance, mood disturbance, and anxiety; E78.5 Hyperlipidemia, unspecified; R32 Unspecified urinary incontinence; E87.6 Hypokalemia; E66.9 Obesity, unspecified; Z68.32 Body mass index [BMI] 32.0-32.9, adult; Z79.4 Long term (current) use of insulin
CPT/HCPCS: 36415; 36600; 71045; 80048; 80053; 80061; 81001; 82803; 82962; 83036; 83605; 83735; 84100; 84443; 84484; 85025; 85610; 85730; 87040; 87081; 87086; 92526; 92610; 93005; 93306; 94640; 94664; 96374; 96375; 97110; 97162; 97530; 99291-25